=== PATIENT | male | born 1970 | race Caucasian/White ===

== ENCOUNTER 2016-10-30 05:47 | Emergency (ER) | payer BC ==
--- NOTE | 2016-10-30 06:53 | ED ---
General Adult HPI - General Chief complaint: GI Bleed Stated complaint: rectal pain Time Seen by Provider: 10/30/16 06:25 Source: patient, RN notes reviewed Mode of arrival: EMS Limitations: no limitations - History of Present Illness Initial comments: This is a 45-year-old male with a history of hemorrhoids who states he's had pain in his rectum area for the last couple days. He was seen at [facility] yesterday and diagnosed with a inflamed hemorrhoid. He was given tramadol and suppositories which have not helped. He is here because of severe pain. - Related Data Home Medications Medication Instructions Recorded Confirmed ALPRAZolam [Xanax] 0.5 mg PO BID PRN 07/13/14 10/30/16 Lisinopril [Zestril] 10 mg PO HS 07/13/14 10/30/16 Ranitidine HCl 150 mg PO HS 07/13/14 10/30/16 buPROPion HCL [Wellbutrin] 450 mg PO HS 07/13/14 10/30/16 Atorvastatin [Lipitor] 10 mg PO HS 07/29/15 10/30/16 Ferrous Sulfate [Feosol] 325 mg PO HS 07/29/15 10/30/16 lamoTRIgine [LaMICtal] 100 mg PO HS 07/29/15 10/30/16 Atomoxetine HCl [Strattera] 100 mg PO QAM 10/30/16 10/30/16 Hydrocortisone Suppository 25 mg RECTAL BID 10/30/16 10/30/16 [Anusol-Hc] traMADol HCL [Ultram] 50 mg PO Q6HR PRN 10/30/16 10/30/16 Previous Rx's Medication Instructions Recorded Hydrocortisone Pr Cream 1 applic RECTAL QID #1 tube 10/30/16 [Proctosol-Hc 2.5%] Ibuprofen [Motrin] 800 mg PO Q6HR PRN #20 tab 10/30/16 Allergies Allergy/AdvReac Type Severity Reaction Status Date / Time No Known Allergies Allergy Verified 10/30/16 06:05 Review of Systems ROS Statement: Those systems with pertinent positive or pertinent negative responses have been documented in the HPI. ROS Other: All systems not noted in ROS Statement are negative. Past Medical History Past Medical History: Hyperlipidemia, Hypertension Additional Past Medical History / Comment(s): hemorrhoids History of Any Multi-Drug Resistant Organisms: None Reported Past Surgical History: Orthopedic Surgery Additional Past Surgical History / Comment(s): 08/01/15 Anterior cervical fusion C6-7. Other surgeries: colonscopy,wisdom teeth Past Psychological History: Anxiety, Depression, PTSD Additional Psychological History / Comment(s): Pt resides with his spouse. He is independent. He drives. Smoking Status: Former smoker Past Alcohol Use History: Rare Additional Past Alcohol Use History / Comment(s): STARTED SMOKING cigars APPROX 1996 ON AND OFF Past Drug Use History: None Reported - Past Family History Father Family Medical History: Coronary Artery Disease (CAD), Myocardial Infarction ([place] ) Additional Family Medical History / Comment(s): CABG-4 VESSEL. Father is 67yrs old. Mother Family Medical History: No Reported History Additional Family Medical History / Comment(s): Mother is healthy and is 68yrs old. General Exam - General Exam Comments Initial Comments: This is a well up well-nourished awake alert oriented times 3 male Limitations: no limitations General appearance: alert, anxious Head exam: Present: atraumatic, normocephalic, normal inspection Neck exam: Present: normal inspection. Absent: tenderness, meningismus, lymphadenopathy Rectal exam: Present: hemorrhoids (Patient does demonstrate markedly inflamed hemorrhoid approximate 2 cm in diameter to 5 o'clock position is pink and color it is not ready to be I&D. No drainage no bleeding seen at this time. The anal verge otherwise raise be within normal limits.) Extremities exam: Present: normal inspection, full ROM, normal capillary refill. Absent: tenderness, pedal edema, joint swelling, calf tenderness Back exam: Present: normal inspection Neurological exam: Present: alert, oriented X3, CN II-XII intact Psychiatric exam: Present: normal affect, normal mood Skin exam: Present: warm, dry, intact, normal color. Absent: rash Course Vital Signs 10/30/16 05:55 Temperature 97.0 F L Pulse Rate 99 Respiratory 18 Rate Blood Pressure 141/97 O2 Sat by Pulse 100 Oximetry Medical Decision Making - Medical Decision Making A patient will be discharged on appropriate medication he is to follow-up with his surgeon and return when necessary Disposition Clinical Impression: Inflamed external hemorrhoid Disposition: HOME SELF-CARE Condition: Good Instructions: Hemorrhoids (ED) Prescriptions: Hydrocortisone Pr Cream [Proctosol-Hc 2.5%] 1 applic RECTAL QID #1 tube Ibuprofen [Motrin] 800 mg PO Q6HR PRN #20 tab PRN Reason: Pain
[2016-10-30] MEDS ORDERED: KETOROLAC 60 MG/2 ML VIAL IM STA (06:54)
[2016-10-30 07:15] VITALS: BP 129/81; PULSE 98; RESP 16; TEMP 97.5
== END 2016-10-30 07:15 | disposition home or self-care (01) ==
LOC: EC 05:47
DX: K64.4 Residual hemorrhoidal skin tags (principal); I10 Essential (primary) hypertension; E78.5 Hyperlipidemia, unspecified; F43.10 Post-traumatic stress disorder, unspecified; F32.9 Major depressive disorder, single episode, unspecified; F41.9 Anxiety disorder, unspecified; Z79.899 Other long term (current) drug therapy; Z87.891 Personal history of nicotine dependence
CPT/HCPCS: 99284; 96372; J1885

== ENCOUNTER 2016-10-31 14:58 | Emergency (ER) | payer BC ==
[2016-10-31 15:04] VITALS: BP 160/99; PULSE 108; RESP 18; TEMP 96.9
[2016-10-31] MEDS ORDERED: KETOROLAC 60 MG/2 ML VIAL IM STA (15:20)
--- NOTE | 2016-10-31 15:20 | ED ---
General Adult HPI - General Chief complaint: Skin/Abscess/Foreign Body Stated complaint: hemorrhoids Time Seen by Provider: 10/31/16 15:11 Source: patient, RN notes reviewed Mode of arrival: ambulatory Limitations: no limitations - History of Present Illness Initial comments: Patient is a 45-year-old male who presents emergency room today with a chief complaint of increased hemorrhoid pain. He does admit that he is scheduled to see surgeon Dr. Douglas in 2 weeks. Patient does admit that he was seen here in the emergency room a few days ago had a shot of pain medicine which she states didn't work well with him. He states did not have pain in the entire day. He states been using ibuprofen at home. States his last dose was approximately 80 in this morning. Patient denies any other complaints or symptoms. Patient denies any recent fever, chills, shortness of breath, chest pain, back pain, abdominal pain, nausea or vomiting, numbness or tingling, dysuria or hematuria, constipation or diarrhea, headaches or visual changes, or any other complaints. - Related Data Home Medications Medication Instructions Recorded Confirmed ALPRAZolam [Xanax] 0.5 mg PO BID PRN 07/13/14 10/30/16 Lisinopril [Zestril] 10 mg PO HS 07/13/14 10/30/16 Ranitidine HCl 150 mg PO HS 07/13/14 10/30/16 buPROPion HCL [Wellbutrin] 450 mg PO HS 07/13/14 10/30/16 Atorvastatin [Lipitor] 10 mg PO HS 07/29/15 10/30/16 Ferrous Sulfate [Feosol] 325 mg PO HS 07/29/15 10/30/16 lamoTRIgine [LaMICtal] 100 mg PO HS 07/29/15 10/30/16 Atomoxetine HCl [Strattera] 100 mg PO QAM 10/30/16 10/30/16 Hydrocortisone Suppository 25 mg RECTAL BID 10/30/16 10/30/16 [Anusol-Hc] traMADol HCL [Ultram] 50 mg PO Q6HR PRN 10/30/16 10/30/16 Previous Rx's Medication Instructions Recorded Hydrocortisone Pr Cream 1 applic RECTAL QID #1 tube 10/30/16 [Proctosol-Hc 2.5%] Ibuprofen [Motrin] 800 mg PO Q6HR PRN #20 tab 10/30/16 Allergies Allergy/AdvReac Type Severity Reaction Status Date / Time No Known Allergies Allergy Verified 10/31/16 15:04 Review of Systems ROS Statement: Those systems with pertinent positive or pertinent negative responses have been documented in the HPI. ROS Other: All systems not noted in ROS Statement are negative. Past Medical History Past Medical History: Hyperlipidemia, Hypertension Additional Past Medical History / Comment(s): hemorrhoids History of Any Multi-Drug Resistant Organisms: None Reported Past Surgical History: Orthopedic Surgery Additional Past Surgical History / Comment(s): 08/01/15 Anterior cervical fusion C6-7. Other surgeries: colonscopy,wisdom teeth Past Psychological History: Anxiety, Depression, PTSD Additional Psychological History / Comment(s): Pt resides with his spouse. He is independent. He drives. Smoking Status: Former smoker Past Alcohol Use History: Rare Additional Past Alcohol Use History / Comment(s): STARTED SMOKING cigars APPROX 1996 ON AND OFF Past Drug Use History: None Reported - Past Family History Father Family Medical History: Coronary Artery Disease (CAD), Myocardial Infarction ([place] ) Additional Family Medical History / Comment(s): CABG-4 VESSEL. Father is 67yrs old. Mother Family Medical History: No Reported History Additional Family Medical History / Comment(s): Mother is healthy and is 68yrs old. General Exam - General Exam Comments Initial Comments: General: The patient is awake and alert, in no distress, and does not appear acutely ill. Eye: Pupils are equal, round and reactive to light, extra-ocular movements are intact. No nystagmus. There is normal conjunctiva bilaterally. No signs of icterus. Neck: The neck is supple. Cardiovascular: There is a regular rate and rhythm. No murmur, rub or gallop is appreciated. Respiratory: Lungs are clear to auscultation, respirations are non-labored, breath sounds are equal. No wheezes, stridor, rales, or rhonchi. Gastrointestinal: Soft, non-distended, non-tender abdomen without masses or organomegaly noted. There is no rebound or guarding present. No CVA tenderness. Bowel sounds are unremarkable. Musculoskeletal: Normal ROM, no tenderness. Strength 5/5. Sensation intact. Pulses equal bilaterally 2+. Neurological: A&O x 3. CN II-XII intact, There are no obvious motor or sensory deficits. Coordination appears grossly intact. Speech is normal. Skin: Skin is warm and dry and no rashes or lesions are noted. Psychiatric: Cooperative, appropriate mood & affect, normal judgment. Limitations: no limitations Course Vital Signs 10/31/16 15:02 Temperature 96.9 F L Pulse Rate 108 H Respiratory 18 Rate Blood Pressure 160/99 O2 Sat by Pulse 99 Oximetry Medical Decision Making - Medical Decision Making Patient advised continued follow-up with his surgeon. Advised continue previously prescribed medications for his symptoms. Denies to return if any Symptoms increase worsen or fail concerns. Disposition Clinical Impression: Hemorrhoid Disposition: HOME SELF-CARE Condition: Good Instructions: Hemorrhoids (ED) Additional Instructions: Please continue previously prescribed medications and follow-up with surgeon as discussed. Please return for any other concerns. Time of Disposition: 15:20
== END 2016-10-31 15:34 | disposition home or self-care (01) ==
LOC: EC 14:58
DX: K64.9 Unspecified hemorrhoids (principal); E78.5 Hyperlipidemia, unspecified; I10 Essential (primary) hypertension; F41.9 Anxiety disorder, unspecified; F32.9 Major depressive disorder, single episode, unspecified; F43.10 Post-traumatic stress disorder, unspecified; Z87.891 Personal history of nicotine dependence; Z79.899 Other long term (current) drug therapy
CPT/HCPCS: 99282 ×2; 96372 ×2; J1885

== ENCOUNTER → 2020-05-13 | Outpatient (CLI) | payer BC ==
--- NOTE | 2020-05-13 14:54 | MR ---
EXAMINATION TYPE: MR cervical spine wo con DATE OF EXAM: 05/13/2020 2:29 PM COMPARISON: NONE HISTORY: Pain Multiplanar MultiSpin echo imaging of the cervical spine was performed. Comparison: none C2-C3: No evidence for degenerative disc disease. No disc bulge/herniation or protrusion. No Canal stenosis. Foramina are patent bilaterally. C3-C4: No evidence for degenerative disc disease. No disc bulge/herniation or protrusion. No Canal stenosis. Foramina are patent bilaterally. C4-C5: Mild disc desiccation with posterior disc bulge. Effacement ventral thecal sac and borderline central stenosis noted. Mild bilateral foraminal encroachment. No compressive myelopathy. C5-C6: Postoperative changes of fusion with anterior fixation plate and screws in place. No evidence for recurrent or residual disease. As the operative alignment is anechoic. C6-C7: No evidence for degenerative disc disease. No disc bulge/herniation or protrusion. No Canal stenosis. Foramina are patent bilaterally. C7-T1: No evidence for degenerative disc disease. No disc bulge/herniation or protrusion. No Canal stenosis. Foramina are patent bilaterally. Cervical segments are intact. There is normal alignment. Cervical spinal cord is of normal signal. Craniovertebral junction relationships are within normal limits. IMPRESSION: 1. Postoperative changes of fusion at C5-6 without evidence for recurrent or residual disease. 2. Disc bulging at C4-5 with effacement of the ventral thecal sac and borderline central stenosis.
== END | disposition home or self-care (01) ==
LOC: RADMRIMAIN 13:54
PROVIDERS: ATTEND Orthopaedic Surgery
DX: M48.02 Spinal stenosis, cervical region (principal); M50.121 Cervical disc disorder at C4-C5 level with radiculopathy; Z98.1 Arthrodesis status
CPT/HCPCS: 72141

== ENCOUNTER 2021-12-27 12:05 | Emergency (ER) | payer BC ==
[2021-12-27 12:15] VITALS: TEMP 97.9
--- NOTE | 2021-12-27 12:33 | ED ---
General Adult HPI - General Chief complaint: Upper Respiratory Infection Stated complaint: Covid+/infusion Time Seen by Provider: 12/27/21 12:20 Source: patient, RN notes reviewed, old records reviewed Mode of arrival: ambulatory Limitations: no limitations - History of Present Illness Initial comments: Well-appearing 51-year-old male, alert and oriented 4, presents with complaints of cough and congestion since Wednesday. Patient states his tested positive for coronavirus and he tested positive with a home test on . He was at urgent care yesterday and was told to come to the emergency room for antibodies. He states that he has been vaccinated and had both boosters. He does have a history of hypertension, obesity and sleep apnea. He denies any fevers, nausea vomiting or diarrhea. No chest pain or shortness of breath -: days(s) (4) Radiation: non-radiation Severity scale (1-10): 0 Associated Symptoms: cough (congestion) - Related Data Home Medications Medication Instructions Recorded Confirmed ALPRAZolam [Xanax] 0.5 mg PO BID PRN 07/13/14 10/30/16 Ranitidine HCl 150 mg PO HS 07/13/14 10/30/16 buPROPion HCL [Wellbutrin] 450 mg PO HS 07/13/14 10/30/16 lisinopriL [Zestril] 10 mg PO HS 07/13/14 10/30/16 Atorvastatin [Lipitor] 10 mg PO HS 07/29/15 10/30/16 Ferrous Sulfate [Feosol] 325 mg PO HS 07/29/15 10/30/16 lamoTRIgine [LaMICtal] 100 mg PO HS 07/29/15 10/30/16 Atomoxetine HCl [Strattera] 100 mg PO QAM 10/30/16 10/30/16 Hydrocortisone Suppository 25 mg RECTAL BID 10/30/16 10/30/16 [Anusol-Hc] traMADol HCL [Ultram] 50 mg PO Q6HR PRN 10/30/16 10/30/16 Previous Rx's Medication Instructions Recorded Hydrocortisone Pr Cream 1 applic RECTAL QID #1 tube 10/30/16 [Proctosol-Hc 2.5%] Ibuprofen [Motrin] 800 mg PO Q6HR PRN #20 tab 10/30/16 Allergies Allergy/AdvReac Type Severity Reaction Status Date / Time No Known Allergies Allergy Verified 12/27/21 12:11 Review of Systems ROS Statement: Those systems with pertinent positive or pertinent negative responses have been documented in the HPI. ROS Other: All systems not noted in ROS Statement are negative. Past Medical History Past Medical History: Hyperlipidemia, Hypertension, Sleep Apnea/CPAP/BIPAP Additional Past Medical History / Comment(s): hemorrhoids History of Any Multi-Drug Resistant Organisms: None Reported Past Surgical History: Orthopedic Surgery Additional Past Surgical History / Comment(s): 08/01/15 Anterior cervical fusion C6-7. Other surgeries: colonscopy,wisdom teeth Past Psychological History: Anxiety, Depression, PTSD Smoking Status: Former smoker Past Alcohol Use History: Rare Past Drug Use History: None Reported - Past Family History Father Family Medical History: Coronary Artery Disease (CAD), Myocardial Infarction ([place]) Additional Family Medical History / Comment(s): CABG-4 VESSEL. Father is 67yrs old. Mother Family Medical History: No Reported History Additional Family Medical History / Comment(s): Mother is healthy and is 68yrs old. General Exam Limitations: no limitations General appearance: alert, in no apparent distress Eye exam: Present: normal appearance. Absent: scleral icterus, conjunctival injection ENT exam: Present: mucous membranes moist Expanded Throat exam: tonsillomegaly. negative: tonsillar erythema, tonsillar exudate, R peritonsillar mass, L peritonsillar mass Neck exam: Present: normal inspection, full ROM. Absent: tenderness, meningismus, lymphadenopathy, thyromegaly Respiratory exam: Present: normal lung sounds bilaterally. Absent: respiratory distress, accessory muscle use Cardiovascular Exam: Present: tachycardia GI/Abdominal exam: Present: soft, distended. Absent: tenderness Extremities exam: Present: normal capillary refill. Absent: pedal edema Back exam: Present: full ROM. Absent: tenderness, CVA tenderness (R), CVA tenderness (L), rash noted Neurological exam: Present: alert, oriented X3 Psychiatric exam: Present: normal affect, normal mood Skin exam: Present: warm, dry, normal color. Absent: rash, cyanosis, diaphoretic, petechiae, pallor Course Vital Signs 12/27/21 12/27/21 12/27/21 12:11 12:18 13:44 Temperature 97.9 F Pulse Rate 111 H 98 Respiratory 18 20 18 Rate Blood Pressure 145/99 140/88 O2 Sat by Pulse 96 97 Oximetry Medical Decision Making - Medical Decision Making Patient presents to the emergency room, coronavirus positive. He is requesting monoclonal antibodies and has a prescription for them with his positive test. He was given antibodies and tolerated them without any difficulty. His oxygen saturation is 97% on room air and his lungs are clear to auscultation. He has been afebrile. He denies any chest pain or shortness of breath. He was instructed to self quarantine and return to the emergency room with any new or concerning symptoms. Patient is agreeable to this plan of care. Disposition Clinical Impression: COVID-19 Disposition: HOME SELF-CARE Condition: Good Instructions (If sedation given, give patient instructions): COVID-19 (Coronavirus Disease 2019) (ED) Additional Instructions: Increase your fluid intake. You can take vitamin C, vitamin D and zinc [id number] to improve your immune health. Return to the emergency room with any new or concerning symptoms. Follow-up with the primary care doctor next week. Remember to self quarantine for 10 days and if your symptoms have resolved after day 5 you can go into public with just a mask for the remaining 5 days. Is patient prescribed a controlled substance at d/c from ED?: No Referrals: Hans Nguyen MD [Primary Care Provider] - 1-2 days
[2021-12-27] MEDS ORDERED: BEBTELOVIMAB (EUA) 175 MG/2 ML VIAL IV ONE (13:00)
[2021-12-27 13:45] VITALS: BP 140/88; PULSE 98; RESP 18
== END 2021-12-27 13:44 | disposition home or self-care (01) ==
LOC: EC 12:05
DX: U07.1 COVID-19 (principal); I10 Essential (primary) hypertension; Z82.49 Family history of ischemic heart disease and other diseases of the circulatory system
CPT/HCPCS: 99283; Q0222